=== PATIENT | female | born 1985 | race Caucasian/White ===

== ENCOUNTER 2021-02-18 05:26 | Inpatient (IN) | payer BC ==
[~2021-02-18] VITALS: Ht 180.3 cm; Wt 110.0 kg
[2021-02-18 05:30] VITALS: BP 99/58
== END 2021-02-19 06:50 | disposition home or self-care (01) | DRG 833 ==
LOC: LDIP 05:26
PROVIDERS: ADMIT Obstetrics & Gynecology; ATTEND Obstetrics & Gynecology
PROC: 3E0DXGC Introduction of Other Therapeutic Substance into Mouth and Pharynx, External Approach (ICD-10-PCS; principal; 2021-02-18)
DX: O26.893 Other specified pregnancy related conditions, third trimester (principal); Z3A.40 40 weeks gestation of pregnancy; Z20.822 Contact with and (suspected) exposure to COVID-19

== ENCOUNTER 2021-02-22 11:50 | Inpatient (IN) | payer BC ==
[~2021-02-22] VITALS: Ht 180.3 cm; Wt 115.0 kg
[2021-02-22] MEDS ORDERED: MISOPROSTOL 25 MCG TABLET VG PRN (21:00)
[2021-02-22] MEDS ORDERED: CALCIUM CARBONATE 500 MG TAB.CHEW PO PRN (21:00)
[2021-02-22] MEDS ORDERED: FENTANYL PF 100 MCG/2ML IV PRN (21:00)
[2021-02-22] MEDS ORDERED: OXYTOCIN 30U/ 0.9% NaCL 500ML 500 ML IV PRN (21:00)
[2021-02-22] MEDS ORDERED: ONDANSETRON 2MG/ML, 2ML IVPush PRN (21:00)
[2021-02-22] MEDS ORDERED: FENTANYL PF 100 MCG/2ML IVPush PRN (21:00)
[2021-02-22] MEDS ORDERED: METOCLOPRAMIDE 5 MG/ML, 2ML IVPush PRN (21:00)
[2021-02-22] MEDS ORDERED: TERBUTALINE 1 MG/ML, 1ML SQ PRN (21:00)
[2021-02-22] MEDS ORDERED: TERBUTALINE 1 MG/ML, 1ML IVPush PRN (21:00)
[2021-02-22] MEDS ORDERED: MISOPROSTOL 25 MCG TABLET ONE (21:11)
[2021-02-22] MEDS ORDERED: MISOPROSTOL 200 MCG TABLET ONE (21:12)
[2021-02-22] MEDS: LACTATED RINGERS 1,000 ML IV SCH (21:20)
[2021-02-22 21:23] LABS: BASOPHILS % (AUTO) 1 % (0-1); EOSINOPHILS % (AUTO) 0 % (1-7); LYMPHOCYTES % (AUTO) 23 % (22-44); MEAN CORPUSCULAR HEMOGLOBIN 26.6 pg (27.0-34.8); MEAN CORPUSCULAR HGB CONC 32.8 g/dL (32.4-35.8); MEAN PLATELET VOLUME 8.7 fL (7.4-10.4); MONOCYTES % (AUTO) 5 % (2-9); NEUTROPHILS % (AUTO) 71 % (42-75); PLATELET COUNT 294 x10^3/uL (130-400); RED BLOOD COUNT 4.29 x10^6/uL (3.82-5.3); RED CELL DISTRIBUTION WIDTH 18.5 % (9.6-15.2)
[2021-02-22] MEDS ORDERED: PLEASE ENTER HEIGHT AND WEIGHT MC SCH (22:00)
[2021-02-23] MEDS ORDERED: CALCIUM CARBONATE 500 MG TAB.CHEW PO PRN (02:30)
[2021-02-23] MEDS ORDERED: SIMETHICONE 80 MG CHEW TAB PO PRN (02:30)
[2021-02-23] MEDS ORDERED: GLYCERIN ADULT SUPP PR PRN (02:30)
[2021-02-23] MEDS ORDERED: ONDANSETRON 2MG/ML, 2ML IV PRN (02:30)
[2021-02-23] MEDS ORDERED: BISACODYL 10 MG SUPP PR PRN (02:30)
[2021-02-23] MEDS ORDERED: METOCLOPRAMIDE 5 MG/ML, 2ML IV PRN (02:30)
[2021-02-23] MEDS ORDERED: IBUPROFEN 600 MG TABLET PO PRN (02:30)
[2021-02-23] MEDS ORDERED: RHOGAM FROM BLOOD BANK 1 NOTE EA IM/IV ONE (02:30)
[2021-02-23] MEDS ORDERED: OXYcodone/APAP 5/325MG TABLET PO PRN ×2 (02:30)
[2021-02-23] MEDS ORDERED: ACETAMINOPHEN 325 MG TABLET PO PRN ×3 (02:30)
[2021-02-23] MEDS ORDERED: METHYLERGONOVINE 0.2 MG/ML IM PRN (02:30)
[2021-02-23] MEDS ORDERED: CARBOPROST TROMETHAMINE 250 MCG/ML, 1ML IM PRN (02:30)
[2021-02-23] MEDS: OXYTOCIN 30U/ 0.9% NaCL 500ML 500 ML IV SCH ×3 (02:30→22:30)
[2021-02-23] MEDS ORDERED: MEASLES,MUMPS&RUBELLA VACC/PF 0.5 ML SQ-VACC PRN (02:30)
[2021-02-23] MEDS ORDERED: MAGNESIUM HYDROXIDE 8%, 30ML UDC PO PRN (02:30)
[2021-02-23] MEDS ORDERED: MISOPROSTOL 200 MCG TABLET PR PRN (02:30)
[2021-02-23 04:30] VITALS: BP 124/78
[2021-02-23] MEDS: LACTATED RINGERS 1,000 ML IV SCH ×3 (05:00→21:00)
[2021-02-23] MEDS: PRENATAL VIT/IRON/FA 1 EACH TABLET PO SCH (07:09)
[2021-02-23] MEDS: DOCUSATE 100 MG CAPSULE PO PRN ×2 (07:09→19:40)
[2021-02-23 08:30] VITALS: BP 124/82
[2021-02-23 09:55] LABS: BASOPHILS % (AUTO) 0 % (0-1); EOSINOPHILS % (AUTO) 0 % (1-7); LYMPHOCYTES % (AUTO) 16 % (22-44); MEAN CORPUSCULAR HEMOGLOBIN 26.4 pg (27.0-34.8); MEAN CORPUSCULAR HGB CONC 32.4 g/dL (32.4-35.8); MEAN PLATELET VOLUME 8.6 fL (7.4-10.4); MONOCYTES % (AUTO) 6 % (2-9); NEUTROPHILS % (AUTO) 79 % (42-75); PLATELET COUNT 240 x10^3/uL (130-400); RED BLOOD COUNT 3.84 x10^6/uL (3.82-5.3); RED CELL DISTRIBUTION WIDTH 18.6 % (9.6-15.2)
[2021-02-23 11:54] VITALS: BP 125/81
[2021-02-23 16:30] VITALS: BP 110/73
[2021-02-23 20:00] VITALS: BP 120/69
[2021-02-24] VITALS: BP 118/72
[2021-02-24] MEDS: LACTATED RINGERS 1,000 ML IV SCH (05:00)
[2021-02-24 07:15] VITALS: BP 126/83
[2021-02-24] MEDS: PRENATAL VIT/IRON/FA 1 EACH TABLET PO SCH (07:27)
[2021-02-24] MEDS: DOCUSATE 100 MG CAPSULE PO PRN (07:27)
[2021-02-24] MEDS: OXYTOCIN 30U/ 0.9% NaCL 500ML 500 ML IV SCH (08:30)
[2021-02-24] MEDS ORDERED: DIPH,PERTUSS(ACELL),TET VAC/PF NC IM-VACC ONE (09:30)
== END 2021-02-24 10:41 | disposition home or self-care (01) | DRG 807 ==
LOC: LDIP 20:53 → 2NW 02-23 04:02
PROVIDERS: ADMIT Obstetrics & Gynecology; ATTEND Obstetrics & Gynecology
PROC: 10E0XZZ Delivery of Products of Conception, External Approach (ICD-10-PCS; principal; 2021-02-23)
PROC: 3E033VJ Introduction of Other Hormone into Peripheral Vein, Percutaneous Approach (ICD-10-PCS; 2021-02-23)
PROC: 0HQ9XZZ Repair Perineum Skin, External Approach (ICD-10-PCS; 2021-02-23)
DX: O48.0 Post-term pregnancy (principal); Z37.0 Single live birth; Z3A.40 40 weeks gestation of pregnancy; O70.0 First degree perineal laceration during delivery; O77.0 Labor and delivery complicated by meconium in amniotic fluid; Z20.822 Contact with and (suspected) exposure to COVID-19
CPT/HCPCS: 36415; 85025; 86592; 86850; 86900; 87635; 90707; 90715; G0378; J3010; J7120